=== PATIENT | female | born 1995 | race Two or more races ===

== ENCOUNTER 2021-10-24 03:50 | Emergency (ER) | payer BC, SELFPAY ==
[2021-10-24 04:02] VITALS: BP 117/78; PULSE 76; RESP 18; TEMP 37; O2SAT 99; BMI 24.6
[2021-10-24 04:29] LABS: COVID-19 Test Negative (Negative)
[2021-10-24 04:32] LABS: IDNOW Serial# 55D5AD1C; Influenza A Negative (Negative); Influenza B2 Negative (Negative)
--- NOTE | 2021-10-24 05:17 | ED_ITS ---
HPI - URI/Sore Throat General Chief Complaint: Upper Respiratory Symptoms Stated Complaint: flu like symptoms Time Seen by Provider: 10/24/21 04:44 Related Data Allergies Allergy/AdvReac Type Severity Reaction Status Date / Time No Known Allergies Allergy Verified 10/24/21 04:05 [facility] Social History Social History Patient : No Physical Exam Vital Signs: Vital Signs: Last Vital Signs Temp 98.6 F 10/24/21 04:02 Pulse 76 10/24/21 04:02 Resp 18 10/24/21 04:02 BP 117/78 10/24/21 04:02 Pulse Ox 99 10/24/21 04:02 BMI result Body Mass Index 24.6 MDM - URI/Sore Throat Lab Data Labs: Lab Results 10/24/21 10/24/21 Range/Units 04:02 04:02 COVID-19 (JACI) Negative (Negative) COVID-19 Clin Com See Note Influenza Type A (ADÁN) Negative (Negative) Influenza Type B (ADÁN) Negative (Negative) Influenza A & B Note See Note Discharge Plan Discharge Clinical Impression: Viral infection Patient Disposition: Home, Self-Care Instructions: Viral Syndrome (ED) Additional Instructions: Your COVID-19 test was negative. Your influenza test was negative. At this time, despite the negative influenza test, I suspect that you do have influenza especially since your partner is positive for the flu. The influenza test has a high false negative rate (40%). At this time, I do not think that you have pneumonia which is reassuring. Take ibuprofen 200 mg pills, 3 pills every 6 hours as needed for pain. Take Tylenol (acetaminophen) 500 mg pills, 2 pills every 4 to 6 hours as needed for pain. Follow-up with your doctor in 2 days. Please return to the emergency department if your symptoms get worse or if you develop any symptoms that are concerning to you. Please see work note. Stand Alone Forms: Work/School Release
== END 2021-10-24 05:37 | disposition home or self-care (01) ==
PROVIDERS: Emergency Provider Emergency Medicine Emergency Medical Services
DX: B34.9 Viral infection, unspecified (principal); Z20.822 Contact with and (suspected) exposure to COVID-19
CPT/HCPCS: 87502; 87635; 99283